=== PATIENT | male | born 1985 | race Two or more races ===

== ENCOUNTER 2017-08-24 19:11 | Emergency (ER) | payer SELFPAY ==
[2017-08-24 19:19] VITALS: BMI 33.7
[2017-08-24] MEDS ORDERED: NS 1000 ML 1,000 ML IV ONE (19:28)
--- NOTE | 2017-08-24 19:30 | DR.GENAD ---
HPI - PCP Primary Care Physician: NFD - Complaint/Symptoms Chief Complaint Doctors Comments: Patient presents to the ED with complaint of being sick for one week with cough, congestion, fever and not feeling. Today he states that he passed out at work. He has a history of hypertension Chief Complaint:: "I FAINTED AT WORK([employer]) JUST A FEW MINUTES AGO. I HAVE THE WORST HEADACHE. I HAVE HAD A COLD , COUGH , CONGESTION FOR THE LAST 2 DAYS. THE LAST 3 HRS I HAVE JUST FELT AWEFUL. MY LITTLE GIRL HAS BEEN SICK WITH A COLD, I THINK SHE GAVE ME IT. MY CHEST ONLY HURTS WHEN I TRY TO BREATH." - Source History Provided: Patient - Mode of Arrival Mode of Arrival: Ambulatory - Timing Onset of Chief Complaint: 08/22/17 PMH - PMH Past Medical History: Yes Past Medical History: Anxiety, Hypertension Past Surgical History: No - Family History History of Family Medical Conditions: Yes Family Medical History: Diabetes Mellitus, Hypertension - Social History Type of Tobacco Use: None Alcohol Use: None Do you use any recreational Drugs:: No Lives With: Spouse, Family Lives Where: Home - infectious screening Have you traveled outside the country in the last 6 months?: No Isolation: Standard ROS - Review of Systems Eyes: No Symptoms Reported ENTM: No Symptoms Reported Respiratoy: No Symptoms Reported Cardiovascular: No Symptoms Reported Gastrointestinal/Abdominal: No Symptoms Reported Genitourinary: No Symptoms Reported Neurological: No Symptoms Reported Musculoskeletal: No Symptoms Reported Integumentary: No Symptoms Reported Hematologic/Lymphatic: No Symptoms Reported Endocrine: No Symptoms Reported Psychiatric: No Symptoms Reported All Other Systems: Reviewed and Negative PE - Vital Signs Vitals: Temperature 100.7 F Pulse Rate 120 Respiratory Rate 16 Blood Pressure 182/111 O2 Sat by Pulse Oximetry 95 - General Limitations: No Limitations General Appearance: Alert, In No Apparent Distress - Head Head Exam: Normal Inspection, Atraumatic - Eyes Eye exam: Normal Appearance, PERRL, EOMI - ENT ENT Exam: negative: Normal External Ear Exam (Left external red, tender tragus , rhinorrhea) External Ear Exam: Pain with Movement, Other (left canal erythematous) TM/Canal Exam: Bilateral Normal Nose Exam: Other (rhinorrhea) Mouth Exam: Normal Inspection Throat Exam: Normal Inspection - Neck Neck Exam: Normal Inspection, Full ROM - Chest Chest Inspection: Normal Inspection - Respiratory Respiratory Exam: Normal Lung Sounds Bilat Respiratory Exam: Bilateral Clear to Auscultation - Cardiovascular Cardiovascular Exam: Regular Rate, Normal Rhythm - Abdominal Exam Abdominal Exam: Normal Inspection, Normal Bowel Sounds Abdominal Tenderness: negative: RUQ, RLQ, LUQ, LLQ, Epigastrium, Suprapubic, Diffuse, Mild, Moderate, Severe, Other - Extremities Extremities Exam: Normal Inspection, Full ROM - Back Back Exam: Normal Inspection - Neurologic Neurological Exam: Alert, Oriented X3, CN II-XII Intact - Psychiatric Psychiatric Exam: Normal Affect - Skin Skin Exam: Warm, Dry, Intact Course - Reevaluation 1st: Improved ROR - Labs Reviewed Laboratory Results Reviewed?: Yes (potassium low) Result Diagrams: 08/24/17 19:39 08/24/17 19:39 Laboratory: WBC 9.5 X10^3/uL (3.6-10.0) 08/24/17 19:39 RBC 6.34 X10^6/uL (4.7-6.0) H 08/24/17 19:39 Hgb 16.9 g/dL (13.5-18.0) 08/24/17 19:39 Hct 49.3 % (42.0-54.0) 08/24/17 19:39 MCV 77.8 fL (80.0-100.0) L 08/24/17 19:39 MCH 26.7 pg (27.0-34.0) L 08/24/17 19:39 MCHC 34.3 g/dL (33.0-35.0) 08/24/17 19:39 RDW 12.8 % (11.6-16.5) 08/24/17 19:39 Plt Count 279 X10^3/uL (150.0-450.0) 08/24/17 19:39 MPV 8.6 fL (7.4-11.0) 08/24/17 19:39 Neut % 80.5 % (42.0-75.0) H 08/24/17 19:39 Lymph % 9.2 % (21.0-51.0) L 08/24/17 19:39 [place] % 7.9 % (0.0-13.0) 08/24/17 19:39 Eos % 1.4 % (0.9-2.9) 08/24/17 19:39 Baso % 1.0 % (0.2-1.0) 08/24/17 19:39 Neut # 7.6 x10^3/uL (2.2-4.8) H 08/24/17 19:39 Lymph # 0.9 X10^3/uL (1.3-2.9) L 08/24/17 19:39 [place] # 0.7 x10^3/uL (0.3-0.8) 08/24/17 19:39 Eos # 0.1 x10^3/uL (0.0-0.2) 08/24/17 19:39 Baso # 0.1 X10^3/uL (0.0-0.1) 08/24/17 19:39 Absolute Nucleated RBC 0.0 /100WBC 08/24/17 19:39 Sodium 134 mmol/L (136-145) L 08/24/17 19:39 Corrected Sodium 139 mmol/L (136-145) 08/24/17 19:39 Potassium 3.3 mmol/L (3.5-5.1) L 08/24/17 19:39 Chloride 97 mmol/L (98-107) L 08/24/17 19:39 Carbon Dioxide 23.5 mmol/L (21-32) 08/24/17 19:39 BUN 6 mg/dL (7-18) L 08/24/17 19:39 Creatinine 0.81 mg/dL (0.70-1.30) 08/24/17 19:39 Est GFR (MDRD) Af Amer > 60 (>60) 08/24/17 19:39 Est GFR (MDRD) Non-Af > 60 (>60) 08/24/17 19:39 Glucose 295 mg/dL (65-99) H 08/24/17 19:39 Calcium 8.5 mg/dL (8.5-10.1) 08/24/17 19:39 Corrected Calcium TNP 08/24/17 19:39 Total Bilirubin 0.50 mg/dL (0.2-1.0) 08/24/17 19:39 AST 108 Units/L (15-37) H 08/24/17 19:39 ALT 122 Units/L (12-78) H 08/24/17 19:39 Alkaline Phosphatase 188 Units/L (46-116) H 08/24/17 19:39 C-Reactive Protein 17.30 mg/L (0-3.0) H 08/24/17 19:39 Total Protein 8.4 g/dL (6.4-8.2) H 08/24/17 19:39 Albumin 3.9 g/dL (3.4-5.0) 08/24/17 19:39 Globulin 4.5 g/dL (2.5-4.5) 08/24/17 19:39 Albumin/Globulin Ratio 0.9 Ratio (1.1-2.1) L 08/24/17 19:39 Influenza Type A (PCR) Positive (NEGATIVE) A 08/24/17 19:39 Influenza Type B (PCR) Negative (NEGATIVE) 08/24/17 19:39 Streptococcus Screen Positive (NEGATIVE) A 08/24/17 19:39 - XRAY XRAY Interpreted by: Radiologist (Chest: No acute cardiopulmonary disease) - Diagnosis Discharge Problem: Influenza A, Strep pharyngitis, Hypokalemia - Discharge Plan Condition: Stable Prescriptions: Amoxicillin 500 mg PO BID #20 capsule - Follow ups/Referrals Follow ups/Referrals: NFD,None [Primary Care Provider] - 3 days - Instructions
[2017-08-24] MEDS ORDERED: NS 1000 ML 1,000 ML ONE (19:33)
[2017-08-24 19:48] LABS: BASOPHILS # (AUTO) 0.1 X10^3/uL (0.0-0.1); EOSINOPHILS # (AUTO) 0.1 x10^3/uL (0.0-0.2); EOSINOPHILS % (AUTO) 1.4 % (0.9-2.9); HEMATOCRIT 49.3 % (42.0-54.0); HEMOGLOBIN 16.9 g/dL (13.5-18.0); LYMPHOCYTES # (AUTO) 0.9 X10^3/uL (1.3-2.9); LYMPHOCYTES % (AUTO) 9.2 % (21.0-51.0); MEAN CORPUSCULAR HEMOGLOBIN 26.7 pg (27.0-34.0); MEAN CORPUSCULAR HGB CONC 34.3 g/dL (33.0-35.0); MEAN CORPUSCULAR VOLUME 77.8 fL (80.0-100.0); MEAN PLATELET VOLUME 8.6 fL (7.4-11.0); MONOCYTES # (AUTO) 0.7 x10^3/uL (0.3-0.8); MONOCYTES % (AUTO) 7.9 % (0.0-13.0); NEUTROPHILS # (AUTO) 7.6 x10^3/uL (2.2-4.8); NEUTROPHILS % (AUTO) 80.5 % (42.0-75.0); PLATELET COUNT 279 X10^3/uL (150.0-450.0); RED BLOOD COUNT 6.34 X10^6/uL (4.7-6.0); RED CELL DISTRIBUTION WIDTH 12.8 % (11.6-16.5); WHITE BLOOD COUNT 9.5 X10^3/uL (3.6-10.0)
--- NOTE | 2017-08-24 19:55 | RAD ---
HISTORY: 32-year-old male with cold, cough and congestion. Study: Frontal view of the chest. Comparison: None. Findings: Study is limited secondary to patient body habitus and excessive quantum mottle. The trachea is midline. The cardiac silhouette is unremarkable. The lungs are clear without focal c onsolidation, effusion or pneumothorax. Soft tissues are unremarkable. Osseous structures are unrema rkable. IMPRESSION: 1. No acute cardiopulmonary disease. Reported By:
[2017-08-24 19:58] LABS: ALANINE AMINOTRANSFERASE 122 Units/L (12-78); ALBUMIN 3.9 g/dL (3.4-5.0); ALKALINE PHOSPHATASE 188 Units/L (46-116); ASPARTATE AMINO TRANSFERASE 108 Units/L (15-37); BLOOD UREA NITROGEN 6 mg/dL (7-18); CALCIUM 8.5 mg/dL (8.5-10.1); CARBON DIOXIDE 23.5 mmol/L (21-32); CHLORIDE 97 mmol/L (98-107); COR NA(FOR HYPERGLY) 139 mmol/L (136-145); CREATININE 0.81 mg/dL (0.70-1.30); SODIUM 134 mmol/L (136-145); TOTAL PROTEIN 8.4 g/dL (6.4-8.2); eGFR BLACK RACES > 60 (>60); eGFR NON BLACK RACES > 60 (>60)
[2017-08-24] MEDS ORDERED: K-LYTE EFFERVESCENT PO STA (20:11)
[2017-08-24] MEDS ORDERED: K-LYTE EFFERVESCENT ONE (20:54)
[2017-08-24] MEDS ORDERED: AMOXIL CAP 500 MG PO ONE ×2 (21:16)
[2017-08-24 21:20] VITALS: BP 175/94
== END 2017-08-24 21:20 | disposition home or self-care (01) ==
LOC: ER 19:28
DX: J11.1 Influenza due to unidentified influenza virus with other respiratory manifestations (principal); J02.0 Streptococcal pharyngitis; E87.6 Hypokalemia
CPT/HCPCS: 36415; 71010; 80053; 85025; 86140; 87502; 87880; 96365; 96367; 99283; A4222

== ENCOUNTER 2017-11-29 09:19 | Emergency (ER) | payer SELFPAY ==
[2017-11-29 09:29] VITALS: BMI 33.7
[2017-11-29] MEDS ORDERED: NS 1000 ML 1,000 ML ONE (09:44)
[2017-11-29] MEDS ORDERED: NS 1000 ML 1,000 ML IV ONE (10:00)
[2017-11-29 10:04] LABS: BILIRUBIN,URINE NEGATIVE (NEGATIVE); BLOOD/HEMOGLOBIN,URINE 3+ (NEGATIVE); GLUCOSE, URINE 4+ (NEGATIVE); KETONES,URINE 2+ (NEGATIVE); LEUKOCYTE ESTERASE ,URINE 2+ (NEGATIVE); NITRITES,URINE NEGATIVE (NEGATIVE); PROTEIN,URINE 2+ (NEGATIVE); UROBILINOGEN,URINE NORMAL (NORMAL)
[2017-11-29 10:13] LABS: APPEARANCE,URINE HAZY (CLEAR); COLOR,URINE YELLOW (YELLOW)
[2017-11-29 10:14] LABS: BACTERIA,URINE NEGATIVE /HPF (NEGATIVE); MUCUS,URINE FEW /HPF (NEGATIVE); SQUAMOUS EPITHELIAL CELL,UR NEGATIVE /HPF (NEGATIVE)
[2017-11-29] MEDS ORDERED: ZOFRAN INJ 4 MG VIAL ONE (10:17)
--- NOTE | 2017-11-29 10:18 | DR.ABDMALE ---
HPI - Time seen Time seen: 10:20 - PCP Primary Care Physician: VAL - HPI comment HPI Comment: FEELING WEAK. NOT HOLDING DOWN FLUID OR MEDICATION. BP ELEVATED AND GIVEN PATIENT HEADACHE. - Complaint Chief Complaint Doctors Comments: N/V/D AND HEADACHE TIMES ONE DAY. FESTIVAL THIS WEEKEND AND UPON RETURN NOTED SYMPTOMS. Chief Complaint:: PT C/O GOING TO A FESTIVAL THE WEEKEND AND EATING AND THINKS HE MAY HAVE FOOD POISONING , PT IS HAVING N/V/D AND ARREGUIN,,,, PT HAS NOT BEEN ABLE TO KEEP HIS BLOOD PRESSURE MEDS DOWN.. Self Treatment fo Chief Complaint: PEPTO, TYLENOL - Reviewed Nurses Notes Review: Yes - Mode of arrival Mode of Arrival: Ambulatory - Timing Onset of Chief Complaint: 11/28/17 Came on: Suddenly - Duration Duration: Constant Duration: Days - Location Location: Diffuse - Severity Severity: Moderate - Quality Quality: Cramping - Context Onset: Suddenly History of: None - Modifying factors Worsening Factors: Nothing Improving Factors: Nothing - Associated signs and symptoms Associated Signs and Symptoms: Nausea, Vomiting, Diarrhea PMH - PMH Past Medical History: Yes Past Medical History: Diabetes, Hypertension Past Medical History Comment: THC USAGE . Past Surgical History: No - Family History History of Family Medical Conditions: No Family Medical History: Diabetes Mellitus, Hypertension - Social History Does patient currently use any type of tobacco product: No Have you used tobacco products in the last 12 months: No Type of Tobacco Use: None Does any household member use tobacco: No Alcohol Use: None Do you use any recreational Drugs:: No Lives With: Family Lives Where: Home - infectious screening In the last 2 months have you had wt loss of >10#?: NO Have you had fever, night sweats or hemotysis?: No Have you traveled outside the country in the last 6 months?: No Isolation: Standard ROS - Review of Systems Constitutional: No Symptoms Reported Eyes: No Symptoms Reported ENTM: No Symptoms Reported Respiratoy: No Symptoms Reported Cardiovascular: Other (BP ELEVATED.) Gastrointestinal/Abdominal: Abdominal Pain, Diarrhea, Nausea, Vomiting Genitourinary: No Symptoms Reported Neurological: Headache Musculoskeletal: No Symptoms Reported Integumentary: No Symptoms Reported Hematologic/Lymphatic: No Symptoms Reported Endocrine: No Symptoms Reported All Other Systems: Reviewed and Negative PE - Vital Signs Vital Signs: Temp Pulse Resp BP BP Pulse Ox 11/29/17 13:09 161/99 11/29/17 09:24 98.2 F 95 H 20 192/111 96 08/24/17 21:19 175/94 175/94 - General Limitations: No Limitations General Appearance: Alert - Head Head Exam: Normal Inspection - Eyes Eye exam: Normal Appearance - ENT ENT Exam: Normal External Ear Exam - Neck Neck Exam: Trachea Midline - Chest Chest Inspection: Symmetric Chest Wall Rise - Respiratory Respiratory Exam: Normal Lung Sounds Bilat Respiratory Exam: Bilateral Clear to Auscultation - Cardiovascular Cardiovascular Exam: Regular Rate, Normal Rhythm, Normal Heart Sounds - Abdominal Exam Abdominal Exam: Normal Bowel Sounds, Soft, Tenderness Abdominal Tenderness: Diffuse, Moderate - Rectal Rectal Exam: Deferred - Back Back Exam: Normal Inspection - Extremeties Extremities Exam: Normal Inspection - Exam: Male: Deferred - Neurologic Neurological Exam: Alert, Oriented X3 - Psychiatric Psychiatric Exam: Normal Affect, Normal Mood - Skin Skin Exam: Normal Color MDM - Differential Diagnosis Differential Diagnosis: Bowel Obstruction, Diverticular disease, Gastritus/PUD, Gastroenteritis, Pancreatitis, Urinary tract infection, Urolithiasis Course - Treatment Treatment: SEE ORDERS. - Education/Counseling Education/Counseling: Patient, Education Educated On: Treatment, Diagnosis, Needs for Follow Up ROR - Labs Reviewed Laboratory Results Reviewed?: Yes Result Diagrams: 11/29/17 10:20 11/29/17 10:20 Laboratory: WBC 12.1 X10^3/uL (3.6-10.0) H 11/29/17 10:20 RBC 6.22 X10^6/uL (4.7-6.0) H 11/29/17 10:20 Hgb 16.7 g/dL (13.5-18.0) 11/29/17 10:20 Hct 48.4 % (42.0-54.0) 11/29/17 10:20 MCV 77.7 fL (80.0-100.0) L 11/29/17 10:20 MCH 26.8 pg (27.0-34.0) L 11/29/17 10:20 MCHC 34.5 g/dL (33.0-35.0) 11/29/17 10:20 RDW 13.7 % (11.6-16.5) 11/29/17 10:20 Plt Count 268 X10^3/uL (150.0-450.0) 11/29/17 10:20 MPV 8.9 fL (7.4-11.0) 11/29/17 10:20 Neut % (Auto) 80.0 % (42.0-75.0) H 11/29/17 10:20 Lymph % (Auto) 12.8 % (21.0-51.0) L 11/29/17 10:20 [place] % (Auto) 4.5 % (0.0-13.0) 11/29/17 10:20 Eos % (Auto) 2.1 % (0.9-2.9) 11/29/17 10:20 Baso % (Auto) 0.6 % (0.2-1.0) 11/29/17 10:20 Neut # (Auto) 9.6 x10^3/uL (2.2-4.8) H 11/29/17 10:20 Lymph # (Auto) 1.5 X10^3/uL (1.3-2.9) 11/29/17 10:20 [place] # (Auto) 0.5 x10^3/uL (0.3-0.8) 11/29/17 10:20 Eos # (Auto) 0.3 x10^3/uL (0.0-0.2) H 11/29/17 10:20 Baso # (Auto) 0.1 X10^3/uL (0.0-0.1) 11/29/17 10:20 Absolute Nucleated RBC 0.0 /100WBC 11/29/17 10:20 Sodium 135 mmol/L (136-145) L 11/29/17 10:20 Corrected Sodium 139 mmol/L (136-145) 11/29/17 10:20 Potassium 3.7 mmol/L (3.5-5.1) 11/29/17 10:20 Chloride 99 mmol/L (98-107) 11/29/17 10:20 Carbon Dioxide 29.0 mmol/L (21-32) 11/29/17 10:20 BUN 7 mg/dL (7-18) 11/29/17 10:20 Creatinine 0.59 mg/dL (0.70-1.30) L 11/29/17 10:20 Est GFR (MDRD) Af Amer > 60 (>60) 11/29/17 10:20 Est GFR (MDRD) Non-Af > 60 (>60) 11/29/17 10:20 Glucose 260 mg/dL (65-99) H 11/29/17 10:20 Calcium 7.8 mg/dL (8.5-10.1) L 11/29/17 10:20 Corrected Calcium TNP 11/29/17 10:20 Total Bilirubin 0.70 mg/dL (0.2-1.0) 11/29/17 10:20 AST 50 Units/L (15-37) H 11/29/17 10:20 ALT 121 Units/L (12-78) H 11/29/17 10:20 Alkaline Phosphatase 186 Units/L (46-116) H 11/29/17 10:20 Total Protein 7.8 g/dL (6.4-8.2) 11/29/17 10:20 Albumin 3.4 g/dL (3.4-5.0) 11/29/17 10:20 Globulin 4.4 g/dL (2.5-4.5) 11/29/17 10:20 Albumin/Globulin Ratio 0.8 Ratio (1.1-2.1) L 11/29/17 10:20 Amylase 31 Units/L (25-115) 11/29/17 10:20 Lipase 94 Units/L (73-393) 11/29/17 10:20 Specimen Type Clean catch urine 11/29/17 09:54 Urine Color Yellow (YELLOW) 11/29/17 09:54 Urine Appearance Hazy (CLEAR) 11/29/17 09:54 Urine pH 5.0 (5.0 - 8.0) 11/29/17 09:54 Ur Specific [place] 1.020 (1.000-1.030) 11/29/17 09:54 Urine Protein 2+ (NEGATIVE) 11/29/17 09:54 Urine Glucose (UA) 4+ (NEGATIVE) 11/29/17 09:54 Urine Ketones 2+ (NEGATIVE) 11/29/17 09:54 Urine Occult Blood 3+ (NEGATIVE) 11/29/17 09:54 Urine Nitrite Negative (NEGATIVE) 11/29/17 09:54 Urine Bilirubin Negative (NEGATIVE) 11/29/17 09:54 Urine Urobilinogen Normal (NORMAL) 11/29/17 09:54 Ur Leukocyte Esterase 2+ (NEGATIVE) 11/29/17 09:54 Urine RBC 5-10 /HPF (NONE SEEN) 11/29/17 09:54 Urine WBC 3-5 /HPF (NONE SEEN) 11/29/17 09:54 Ur Squamous Epith Cells Negative /HPF (NEGATIVE) 11/29/17 09:54 Urine Bacteria Negative /HPF (NEGATIVE) 11/29/17 09:54 Urine Mucus Few /HPF (NEGATIVE) 11/29/17 09:54 Ur Culture Indicated? No/not indicated 11/29/17 09:54 H. pylori IgG Antibody Positive (NEGATIVE) A 11/29/17 10:20 - XRAY XRAY Interpreted by: Radiologist XRAY Findings: REPORT DISCUSS WITH PATIENT. 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 HAVE FOLLOW UP DOCTOR TREAT POSITIVE H PYLORI TEST WHEN YOU IMPROVE.
[2017-11-29 10:30] LABS: BASOPHILS # (AUTO) 0.1 X10^3/uL (0.0-0.1); BASOPHILS % (AUTO) 0.6 % (0.2-1.0); EOSINOPHILS # (AUTO) 0.3 x10^3/uL (0.0-0.2); EOSINOPHILS % (AUTO) 2.1 % (0.9-2.9); HEMATOCRIT 48.4 % (42.0-54.0); HEMOGLOBIN 16.7 g/dL (13.5-18.0); LYMPHOCYTES # (AUTO) 1.5 X10^3/uL (1.3-2.9); LYMPHOCYTES % (AUTO) 12.8 % (21.0-51.0); MEAN CORPUSCULAR HEMOGLOBIN 26.8 pg (27.0-34.0); MEAN CORPUSCULAR HGB CONC 34.5 g/dL (33.0-35.0); MEAN CORPUSCULAR VOLUME 77.7 fL (80.0-100.0); MEAN PLATELET VOLUME 8.9 fL (7.4-11.0); MONOCYTES # (AUTO) 0.5 x10^3/uL (0.3-0.8); MONOCYTES % (AUTO) 4.5 % (0.0-13.0); NEUTROPHILS # (AUTO) 9.6 x10^3/uL (2.2-4.8); PLATELET COUNT 268 X10^3/uL (150.0-450.0); RED BLOOD COUNT 6.22 X10^6/uL (4.7-6.0); RED CELL DISTRIBUTION WIDTH 13.7 % (11.6-16.5); WHITE BLOOD COUNT 12.1 X10^3/uL (3.6-10.0)
[2017-11-29] MEDS ORDERED: TORADOL 30 MG VIAL IVP ONE (10:32)
[2017-11-29] MEDS ORDERED: PEPCID 20 MG IV PREMIX* 20 MG/50 ML BAG IV ONE ×2 (10:32)
[2017-11-29] MEDS ORDERED: TORADOL 30 MG VIAL ONE (10:32)
[2017-11-29 10:38] LABS: ALANINE AMINOTRANSFERASE 121 Units/L (12-78); ALBUMIN 3.4 g/dL (3.4-5.0); ALKALINE PHOSPHATASE 186 Units/L (46-116); AMYLASE 31 Units/L (25-115); ASPARTATE AMINO TRANSFERASE 50 Units/L (15-37); BLOOD UREA NITROGEN 7 mg/dL (7-18); CALCIUM 7.8 mg/dL (8.5-10.1); CHLORIDE 99 mmol/L (98-107); COR NA(FOR HYPERGLY) 139 mmol/L (136-145); CREATININE 0.59 mg/dL (0.70-1.30); LIPASE 94 Units/L (73-393); SODIUM 135 mmol/L (136-145); TOTAL PROTEIN 7.8 g/dL (6.4-8.2); eGFR BLACK RACES > 60 (>60); eGFR NON BLACK RACES > 60 (>60)
--- NOTE | 2017-11-29 11:11 | RAD ---
HISTORY: Abdominal pain. Vomiting. Diarrhea. Study: PA chest with supine and upright abdominal views Comparison: 08/24/2017 Findings: The lungs are clear. The heart size is normal. No acute bony abnormalities are identified. Examination of the abdomen reveals scattered large and small bowel gas. A small to moderate amount o f stool is noted in the distal transverse colon and proximal descending colon. Gas and stool is note d in the region of the rectum. A few small air-fluid levels are present, predominating in the lower abdomen. No abnormal calcifications seen to overlie the renal shadows. No acute bony abnormalities are identified. IMPRESSION: 1. No radiographic evidence of acute cardiopulmonary disease or significant change is noted when com pared to the prior examination. 2. I see no definite evidence of bowel obstruction or pneumoperitoneum, however, there are scattered air-fluid levels. Clinical correlation is recommended. 3. Moderate amount of stool present within the distal transverse colon and proximal descending colon. Reported By:
[2017-11-29 13:10] VITALS: BP 161/99
== END 2017-11-29 13:03 | disposition home or self-care (01) ==
LOC: ER 09:36
DX: K52.89 Other specified noninfective gastroenteritis and colitis (principal); B96.81 Helicobacter pylori [H. pylori] as the cause of diseases classified elsewhere; R10.84 Generalized abdominal pain; R11.2 Nausea with vomiting, unspecified
CPT/HCPCS: 36415; 74022; 80053; 81001; 82150; 83690; 85025; 86677; 96365; 96374; 96375; 99282; 99283; A4222; S0028; J1885; J2405